=== PATIENT | male | born 1935 | race Caucasian/White ===

== ENCOUNTER 2018-07-07 06:13 | Day surgery (SDC) | payer MEDICARE, OTHER, SELFPAY ==
--- NOTE | 2018-07-06 09:30 | W.PIPPEYE ---
History of Present Illness Chief Complaint: Progressive decreased vision, right eye Narrative: The patient is an 82-year-old male with history of progressive decreased vision in both eyes at both distance and near. He notes particular difficulty on the computer. On examination he was noted to have moderate bilateral nuclear and cortical cataracts with corrected visual acuity of 20/30 OD, 20/25 OS, but with significant glare disability. The option of cataract surgery was offered to the patient and he wished to proceed. NOTE: The Chief Complaint, HPI, Past Medical History, Past Surgical History, Family History, Social History, Medications, and complete Ophthalmic Exam with detailed Assessment and Plan have already been documented in the patient's outpatient ophthalmic record and are not covered again in detail here. FORMERLY [facility], LATER [facility] Medical History Cortical cataract of right eye (Acute) Nuclear sclerotic cataract of right eye (Acute) Social History Smoking/Tobacco Use Status: Former Tobacco Use Meds Home Medications Medication Instructions Recorded Confirmed Type amiodarone 200 mg PO DAILY 07/04/18 07/04/18 History apixaban 5 mg PO BID 07/04/18 07/04/18 History furosemide 40 mg PO DAILY 07/04/18 07/04/18 History metformin 500 mg PO DAILY 07/04/18 07/04/18 History nitroglycerin [Nitrostat] 0.4 mg SUBLINGUAL Q5-15M PRN 07/04/18 07/04/18 History pantoprazole 40 mg PO DAILY 07/04/18 07/04/18 History potassium chloride [Klor-Con M20] 20 meq PO DAILY 07/04/18 07/04/18 History rosuvastatin [Crestor] 5 mg PO DAILY 07/04/18 07/04/18 History tamsulosin 0.8 mg PO DAILY 07/04/18 07/04/18 History tramadol 50 mg PO BID 07/04/18 07/04/18 History Allergies Allergy/AdvReac Type Severity Reaction Status Date / Time meperidine [From Demerol] AdvReac Verified 07/04/18 13:04 rivaroxaban [From Xarelto] AdvReac Swelling/Ed Verified 07/04/18 13:04 bessie shellfish derived AdvReac Skin Rash Verified 07/04/18 13:04 Exam OCULAR EXAM:: Most recent ocular examination revealed corrected visual acuity of 20/30 OD, 2024 OS. Intraocular pressure is 15 OD, 17 OS. Extraocular motility is normal. Pupils equal, round, and reactive without afferent pupillary defect. Slit-lamp examination reveals pupils dilating only to 4.5 mm OD, 5.5 mm OS. 2+ nuclear/cortical cataracts are present OU. Dilated funduscopic examination shows disc cupping of 0.6 OD 0.7 OS with good color. Vessels, macula, peripheral retina and vitreous are normal. There are mild macular pigmentary changes in the left eye. BRIGHTNESS ACUITY TESTING (BAT):: Brightness acuity testing of the right eye off is 20/30. Low is 20/40. Medium is 20/50. High is 20/70. Assessment and Plan (1) Nuclear sclerotic cataract of right eye: Current visit: No Status: Acute Assessment: Visually significant cataract, right eye. Plan: Cataract extraction with intraocular lens implantation, right eye (2) Cortical cataract of right eye: Current visit: No Status: Acute Assessment: Visually significant cataract, right eye. Plan: Cataract extraction with intraocular lens implantation, right eye Note: NOTE:: The details of the planned surgery, including the risks, indications,limitations,expectations,outcome and possible complications were explained to the patient. The patient understands the complications including, but not limited to: infection, hemorrhage, posterior dislocation of the lens or nuclear fragments which may require the intervention of a vitreoretinal surgeon, possible loss of the eye, or from anesthetic complications. The patient has been made aware of the option of not having surgery, that vision following surgery may not be equal to that prior to surgery, and that the planned surgery may not achieve the intended results. Following this discussion, which the patient appeared to understand, the patient wishes to proceed with cataract surgery with lens implantation of the affected eye to improve and maximize vision.
--- NOTE | 2018-07-06 11:52 | W.PM.DSUDISC ---
Discharge Plan Discharge Details Attending Provider: Simon Jara Primary Care Provider: Homar Vergara Home Meds and New Rx's Prescriptions: No Action potassium chloride [Klor-Con M20] 20 mEq Tablet,Er Particles/Crystals 20 meq PO DAILY RF: 0 pantoprazole 40 mg Tablet,Delayed Release (Dr/Ec) 40 mg PO DAILY RF: 0 nitroglycerin [Nitrostat] 0.4 mg Tablet, Sublingual 0.4 mg SUBLINGUAL Q5-15M PRNRF: 0 furosemide 20 mg Tablet 40 mg PO DAILY RF: 0 rosuvastatin [Crestor] 5 mg Tablet 5 mg PO DAILY RF: 0 metformin 500 mg Tablet 500 mg PO DAILY RF: 0 amiodarone 200 mg Tablet 200 mg PO DAILY RF: 0 tamsulosin 0.4 mg Capsule 0.8 mg PO DAILY RF: 0 apixaban 5 mg Tablet 5 mg PO BID RF: 0 tramadol 50 mg Tablet 50 mg PO BID RF: 0 Discharge Instructions Stand Alone Forms: Post-op Topical Cataract, Lulu Culp (DSU) DS: Diagnosis Discharge Diagnosis (1) Status post cataract extraction and insertion of intraocular lens of right eye: Status: Chronic
--- NOTE | 2018-07-06 11:53 | W.PM.OP ---
Date of service: 07/07/18 Time of Service: 08:09 Operative Note PRE-OP DIAGNOSIS: Cataract, right eye, with poorly dilating pupil POST-OP DIAGNOSIS: same PROCEDURE: 1. Cataract extraction by phacoemulsification with intraocular lens implantation, right eye, with pupillary expansion device SURGEON: Simon Jara ANESTHESIA: MAC (with local sub-tenon's anesthetic injection) PATHOLOGY: none sent COMPLICATIONS: None Patient was transported to: same day Patient's condition: stable Implants: Dustin and Dustin / [employer] Tecnis [id number] Indications: Progressive decreased vision due to cataract, right eye, with poorly dilating pupil Procedure Description: CATARACT SURGERY OPERATIVE REPORT PREOPERATIVE DIAGNOSIS: 1. Nuclear/cortical cataract, right eye 2. Poorly dilating pupil, right eye POSTOPERATIVE DIAGNOSIS: Same OPERATION: 1. Cataract extraction using phacoemulsification with posterior chamber intraocular lens implant, right eye. 2. Pupillary dilation and iris stabilization using Malyugin Ring IOL: IOL Keypunch Operators Supervisor/Model: Dustin & Dustin / JOSEPH Tecnis [id number] IOL Power: + 22.0 diopters IOL Serial Number: [id number] Optic Diameter: 6.0mm Haptic/Overall Diameter: 13.0mm PHACO INFO: Charles Guidefitterurion Vision System with OZil and Active Fluidics Cumulative Dispersed Energy (CDE): 9.34 seconds SURGEON: Simon Jara MD, DARSHANA ANESTHESIA: Monitored Anesthesia Care (MAC), with local sub-tenon's anesthetic infiltration COMPLICATIONS: None SPECIMENS: None INDICATIONS FOR PROCEDURE: The patient is an 82-year-old gentleman with history of symptomatic bilateral nuclear and cortical cataracts that have become increasingly more symptomatic. The option of cataract surgery was offered to the patient and he felt he was symptomatic enough that he wished to proceed. Of note, he takes Flomax and has poorly dilating pupils. PROCEDURE: The correct surgical eye was identified and marked as the right eye and the pupil was dilated in the preoperative area using mydriatics and cycloplegics. The dilated pupil size was 4.5 mm. Oral sedation was administered in the form of an Imprimis MKO Melt (midazolam 3mg/ketamine 25mg/ondansetron 2mg). The patient was brought to the operating room where cardiopulmonary monitoring was instituted and surgical time-out was performed, confirming the correct operative eye and IOL power. Topical anesthesia was administered and ophthalmic povidone-iodine 5% was instilled into the conjunctival fornices. Lidocaine gel was applied to the cornea and the allen-ocular area was prepped with Betadine 10% solution and draped in the usual sterile fashion for intraocular surgery, including an aperture drape. A Tegaderm transparent film dressing was cut in half and used to cover the lashes and lid margins. Care was taken to sequester the lashes and lid margins under the Tegaderm dressing. A lid speculum was placed between the lids of the operative eye and the Arlene-Annetta operating microscope was maneuvered into position. Gavin scissors were then used to make a conjunctival buttonhole approximately 6mm posterior to the limbus in the inferonasal quadrant. Blunt dissection was carried out to expose bare sclera, and a blunt-tipped sub-tenon?s anesthesia cannula was introduced and passed posteriorly along the globe where non-preserved plain lidocaine was injected into posterior sub-Tenon?s space. A sideport knife was used to make a paracentesis port inferiortemporally. The anterior chamber was filled with Healon GV. A 2.4mm keratome knife was used to create a half-thickness groove at the limbus and then to construct a three-plane near-clear corneal tunnel extending 2.0mm into clear cornea superiortemporally. A 7.0 mm Malyugin Ring was then inserted into the pupillary space and engaged with the Kuglen hook. A flap was raised on the anterior capsule and capsulorhexis forceps were used to complete a continuous curvilinear capsulorhexis of 4.8 mm. Balanced salt solution was then used to perform cortical cleaving hydrodissection and nuclear hydrodelineation until the lens could be freely rotated within the capsular bag. The lens nucleus was then disassembled and removed within the capsular bag and iris plane using phacoemulsification. Residual cortical material was removed using the 45-degree angled silicone I/A tip with 0.3mm port. The posterior capsule was carefully polished to remove as much residual lens epithelial cells as safely possible. The capsular bag was then inflated and the anterior chamber deepened with viscoelastic. The lens implant described above was inserted into the capsular bag using the JOSEPH Skytop Injector. A Kuglen hook was used to dial the IOL into position. The Malyugin Ring was removed in the reverse order of its insertion. Residual viscoelastic was then removed first from posterior to the IOL, then from the anterior chamber using the I/A handpiece. The lens implant was noted to center nicely within the capsular bag. The incisions were stromally hydrated, and the anterior chamber was reformed using BSS. Then 0.4cc of moxifloxacin 1.5mg/ml were injected into the capsular bag and anterior chamber. The incisions were checked with a Weck spear and found to be secure. Several drops of ophthalmic povidone-iodine 5% were then applied to the eye followed by two drops of Imprimis combination moxifloxacin/dexamethasone solution. The drapes were removed and a clear plastic protective eye shield was placed over the eye. The patient was then returned to Same Day Surgery in stable condition.
[2018-07-07 06:36] VITALS: BP 135/79; PULSE 88; RESP 17; TEMP 36.9; O2SAT 97
[2018-07-07] MEDS: Tetracaine 0.5% 4 ML BTL OD ×4 (06:45→07:32)
[2018-07-07] MEDS: Tropicam./Phenyleph. (1/2.5%) 5 ML BTL OD ×3 (06:45→06:52)
[2018-07-07] MEDS: Povidone-Iodine Ophth 30 ML BTL (07:32)
[2018-07-07] MEDS: Lidocaine 2% Jelly 6 ML SYR (07:35)
[2018-07-07] MEDS: Balanced Salt Soln.-PLUS 500 ML BAG (07:36)
[2018-07-07] MEDS: Lidocaine 1% Pres-Free 5 ML VIAL (07:38)
[2018-07-07 08:40] VITALS: BP 129/76; PULSE 88; RESP 18; TEMP 36.1; O2SAT 93
== END 2018-07-07 08:40 | disposition home or self-care (01) ==
PROVIDERS: PCP Family Medicine; Visit Provider Ophthalmology
PROC: (CPT 66982; principal; 2018-07-07 07:30)
DX: H25.811 Combined forms of age-related cataract, right eye (principal); H57.09 Other anomalies of pupillary function; T44.6X5S Adverse effect of alpha-adrenoreceptor antagonists, sequela; E11.9 Type 2 diabetes mellitus without complications; Z79.84 Long term (current) use of oral hypoglycemic drugs; I10 Essential (primary) hypertension
CPT/HCPCS: 66982; V2632

== ENCOUNTER 2018-07-21 06:59 | Day surgery (SDC) | payer MEDICARE, OTHER, SELFPAY ==
--- NOTE | 2018-07-20 07:17 | W.PIPPEYE ---
History of Present Illness Chief Complaint: Progressive decreased vision, left eye Narrative: Patient is an 82-year-old male with history of diminished visual acuity in both eyes at both distance and near. He has significant difficulty when using the computer. On examination he was noted to have moderate nuclear and cortical cataracts. He was significantly symptomatic from decreased vision that he desired cataract surgery. He underwent cataract surgery in the right eye on 07/07/2018. Postoperatively he has regained uncorrected vision of 20/20 in the right eye. He now presents for cataract surgery in the left eye. NOTE: The Chief Complaint, HPI, Past Medical History, Past Surgical History, Family History, Social History, Medications, and complete Ophthalmic Exam with detailed Assessment and Plan have already been documented in the patient's outpatient ophthalmic record and are not covered again in detail here. [facility] Medical History Cortical cataract of left eye (Acute) Nuclear sclerotic cataract of left eye (Acute) Cortical cataract of right eye (Resolved) Nuclear sclerotic cataract of right eye (Resolved) Surgical History Status post cataract extraction and insertion of intraocular lens of right eye (Chronic 07/07/18) Social History Smoking and Tabacco status: Former Tobacco Use Meds Home Medications Medication Instructions Recorded Confirmed Type amiodarone 200 mg PO DAILY 07/04/18 07/07/18 History apixaban 5 mg PO BID 07/04/18 07/07/18 History furosemide 40 mg PO DAILY 07/04/18 07/07/18 History metformin 500 mg PO DAILY 07/04/18 07/07/18 History nitroglycerin [Nitrostat] 0.4 mg SUBLINGUAL Q5-15M PRN 07/04/18 07/04/18 History pantoprazole 40 mg PO DAILY 07/04/18 07/07/18 History potassium chloride [Klor-Con M20] 20 meq PO DAILY 07/04/18 07/07/18 History rosuvastatin [Crestor] 5 mg PO DAILY 07/04/18 07/07/18 History tamsulosin 0.8 mg PO DAILY 07/04/18 07/07/18 History tramadol 50 mg PO BID 07/04/18 07/07/18 History Allergies Allergy/AdvReac Type Severity Reaction Status Date / Time meperidine [From Demerol] AdvReac Verified 07/07/18 06:30 rivaroxaban [From Xarelto] AdvReac Swelling/Ed Verified 07/07/18 06:30 bessie shellfish derived AdvReac Skin Rash Verified 07/07/18 06:30 Exam OCULAR EXAM:: Most recent ocular examination is significant for uncorrected vision of 20/20 in the right eye. Vision is corrected to 20/40 in the left eye. Intraocular pressure is 14 OD, 17 OS. Extraocular motility is normal. Pupils equal, round, and reactive without afferent pupillary defect slit-lamp examination is significant for pupils dilating to 4.5 mm OD, 5.5 mm OS. Well-positioned PCIOL OD with clear posterior capsule. 2+ nuclear with 2+ cortical cataract OS. Funduscopic examination reveals disc cupping of 0.6 OD 0.7 OS with good color. The retinal vasculature is normal. The right macula is normal. There is mild RPE changes in the left eye. Peripheral retina and vitreous is normal. BRIGHTNESS ACUITY TESTING (BAT):: Brightness acuity testing of the left eye off is 20/40. Low is 20/60. Medium is 20/60. High is 20/200. Assessment and Plan (1) Nuclear sclerotic cataract of left eye: Current visit: No Status: Acute Assessment: Visually significant cataract, left eye. Plan: Cataract extraction with intraocular lens implantation, left eye (2) Cortical cataract of left eye: Current visit: No Status: Acute Assessment: Visually significant cataract, left eye. Plan: Cataract extraction with intraocular lens implantation, left eye Note: NOTE:: The details of the planned surgery, including the risks, indications,limitations,expectations,outcome and possible complications were explained to the patient. The patient understands the complications including, but not limited to: infection, hemorrhage, posterior dislocation of the lens or nuclear fragments which may require the intervention of a vitreoretinal surgeon, possible loss of the eye, or from anesthetic complications. The patient has been made aware of the option of not having surgery, that vision following surgery may not be equal to that prior to surgery, and that the planned surgery may not achieve the intended results. Following this discussion, which the patient appeared to understand, the patient wishes to proceed with cataract surgery with lens implantation of the affected eye to improve and maximize vision.
--- NOTE | 2018-07-20 07:21 | POEE_ITS ---
History of Present Illness Chief Complaint: Progressive decreased vision, left eye Narrative: Patient is an 82-year-old male with history of diminished visual acuity in both eyes at both distance and near. He has significant difficulty when using the computer. On examination he was noted to have moderate nuclear and cortical cataracts. He was significantly symptomatic from decreased vision that he desired cataract surgery. He underwent cataract surgery in the right eye on 07/07/2018. Postoperatively he has regained uncorrected vision of 20/20 in the right eye. He now presents for cataract surgery in the left eye. NOTE: The Chief Complaint, HPI, Past Medical History, Past Surgical History, Family History, Social History, Medications, and complete Ophthalmic Exam with detailed Assessment and Plan have already been documented in the patient's outpatient ophthalmic record and are not covered again in detail here. FORMERLY [facility] Medical History Cortical cataract of left eye (Acute) Nuclear sclerotic cataract of left eye (Acute) Cortical cataract of right eye (Resolved) Nuclear sclerotic cataract of right eye (Resolved) Surgical History Status post cataract extraction and insertion of intraocular lens of right eye (Chronic 07/07/18) Social History Smoking and Tabacco status: Former Tobacco Use Meds Home Medications Medication Instructions Recorded Confirmed Type amiodarone 200 mg PO DAILY 07/04/18 07/07/18 History apixaban 5 mg PO BID 07/04/18 07/07/18 History furosemide 40 mg PO DAILY 07/04/18 07/07/18 History metformin 500 mg PO DAILY 07/04/18 07/07/18 History nitroglycerin [Nitrostat] 0.4 mg SUBLINGUAL Q5-15M PRN 07/04/18 07/04/18 History pantoprazole 40 mg PO DAILY 07/04/18 07/07/18 History potassium chloride [Klor-Con M20] 20 meq PO DAILY 07/04/18 07/07/18 History rosuvastatin [Crestor] 5 mg PO DAILY 07/04/18 07/07/18 History tamsulosin 0.8 mg PO DAILY 07/04/18 07/07/18 History tramadol 50 mg PO BID 07/04/18 07/07/18 History Allergies Allergy/AdvReac Type Severity Reaction Status Date / Time meperidine [From Demerol] AdvReac Verified 07/07/18 06:30 rivaroxaban [From Xarelto] AdvReac Swelling/Ed Verified 07/07/18 06:30 bessie shellfish derived AdvReac Skin Rash Verified 07/07/18 06:30 Exam OCULAR EXAM:: Most recent ocular examination is significant for uncorrected vision of 20/20 in the right eye. Vision is corrected to 20/40 in the left eye. Intraocular pressure is 14 OD, 17 OS. Extraocular motility is normal. Pupils equal, round, and reactive without afferent pupillary defect slit-lamp examination is significant for pupils dilating to 4.5 mm OD, 5.5 mm OS. Well- positioned PCIOL OD with clear posterior capsule. 2+ nuclear with 2+ cortical cataract OS. Funduscopic examination reveals disc cupping of 0.6 OD 0.7 OS with good color. The retinal vasculature is normal. The right macula is normal. There is mild RPE changes in the left eye. Peripheral retina and vitreous is normal. BRIGHTNESS ACUITY TESTING (BAT):: Brightness acuity testing of the left eye off is 20/40. Low is 20/60. Medium is 20/60. High is 20/200. Assessment and Plan (1) Nuclear sclerotic cataract of left eye: Current visit: No Status: Acute Assessment: Visually significant cataract, left eye. Plan: Cataract extraction with intraocular lens implantation, left eye (2) Cortical cataract of left eye: Current visit: No Status: Acute Assessment: Visually significant cataract, left eye. Plan: Cataract extraction with intraocular lens implantation, left eye Note: NOTE:: The details of the planned surgery, including the risks, evan cations,limitations,expectations,outcome and possible complications were explained to the patient. The patient understands the complications including, but not limited to: infection, hemorrhage, posterior dislocation of the lens or nuclear fragments which may require the intervention of a vitreoretinal surgeon, possible loss of the eye, or from anesthetic complications. The patient has been made aware of the option of not having surgery, that vision following surgery may not be equal to that prior to surgery, and that the planned surgery may not achieve the intended results. Following this discussion, which the patient appeared to understand, the patient wishes to proceed with cataract surgery with lens implantation of the affected eye to improve and maximize vision.
[2018-07-21 07:24] VITALS: BP 140/89; PULSE 96; RESP 18; TEMP 35.6; O2SAT 97
[2018-07-21 07:29] VITALS: BP 140/89; PULSE 96; RESP 18; TEMP 35.6; O2SAT 97
[2018-07-21] MEDS: Tropicam./Phenyleph. (1/2.5%) 5 ML BTL OS ×3 (07:42→07:51)
[2018-07-21] MEDS: Tetracaine 0.5% 4 ML BTL OS ×5 (07:42→08:27)
--- NOTE | 2018-07-21 08:05 | W.PM.DSUDISC ---
Discharge Plan Discharge Details Attending Provider: Simon Jara Primary Care Provider: Homar Vergara Home Meds and New Rx's Prescriptions: No Action potassium chloride [Klor-Con M20] 20 mEq Tablet,Er Particles/Crystals 20 meq PO DAILY RF: 0 pantoprazole 40 mg Tablet,Delayed Release (Dr/Ec) 40 mg PO DAILY RF: 0 nitroglycerin [Nitrostat] 0.4 mg Tablet, Sublingual 0.4 mg SUBLINGUAL Q5-15M PRNRF: 0 furosemide 20 mg Tablet 40 mg PO DAILY RF: 0 rosuvastatin [Crestor] 5 mg Tablet 5 mg PO DAILY RF: 0 metformin 500 mg Tablet 500 mg PO DAILY RF: 0 amiodarone 200 mg Tablet 200 mg PO DAILY RF: 0 tamsulosin 0.4 mg Capsule 0.8 mg PO DAILY RF: 0 apixaban 5 mg Tablet 5 mg PO BID RF: 0 tramadol 50 mg Tablet 50 mg PO BID RF: 0 Discharge Instructions Stand Alone Forms: Post-op Topical Cataract, Lulu Culp (DSU) DS: Diagnosis Discharge Diagnosis (1) Status post cataract extraction and insertion of intraocular lens of left eye: Status: Chronic
--- NOTE | 2018-07-21 08:05 | W.PM.OP ---
Date of service: 07/21/18 Time of Service: 08:57 Operative Note PRE-OP DIAGNOSIS: Cataract, left eye, with poorly dilating pupil POST-OP DIAGNOSIS: same PROCEDURE: Cataract extraction by phacoemulsification with intraocular lens implantation, left eye, with pupillary expansion device SURGEON: Simon Jara ANESTHESIA: MAC and local (sub-tenon's anesthetic infiltration) ESTIMATED BLOOD LOSS: 0 PATHOLOGY: none sent COMPLICATIONS: None Patient was transported to: same day Patient's condition: stable Implants: Dustin [employer] Dustin / [employer] Tecnis [id number] Indications: Progressive decreased vision, left eye Procedure Description: CATARACT SURGERY OPERATIVE REPORT PREOPERATIVE DIAGNOSIS: 1. Nuclear/cortical cataract, left eye 2. Poorly dilating pupil, left eye POSTOPERATIVE DIAGNOSIS: Same OPERATION: 1. Cataract extraction using phacoemulsification with posterior chamber intraocular lens implant, left eye. 2. Pupillary dilation and iris stabilization using Malyugin Ring IOL; IOL Date Puller/Model: Dustin & Dustin / JOSEPH Tecnis [id number] IOL Power: + 22.0 diopters IOL Serial Number: [id number] Optic Diameter: 6.0 mm Haptic/Overall Diameter: 13.00 mm PHACO INFO: [employer] Vision System with OZil and Active [employer]uidics Cumulative Dispersed Energy (CDE): 6.86 seconds SURGEON: Simon Jara MD, DARSHANA ANESTHESIA: Monitored Anesthesia Care (MAC), with local sub-tenon's anesthetic infiltration COMPLICATIONS: None SPECIMENS: None INDICATIONS FOR PROCEDURE: The patient is an 82-year-old gentleman with history of 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 He has already undergone cataract surgery in his right eye and is doing well postoperatively. He now presents for cataract surgery in the left eye. PROCEDURE: The correct surgical eye was identified and marked as the left eye and the pupil was dilated in the preoperative area using mydriatics, cycloplegics, and NSAIDS (except in aspirin allergic patients). The dilated pupil size was 4.5 mm. Oral sedation was administered in the form of an Imprimis MKO Melt (midazolam 3mg/ketamine 25mg/ondansetron 2mg). The patient was brought to the operating room where cardiopulmonary monitoring was instituted and surgical time-out was performed, confirming the correct operative eye and IOL power. Topical anesthesia was administered and ophthalmic povidone-iodine 5% was instilled into the conjunctival fornices. Lidocaine gel was applied to the cornea and the allen-ocular area was prepped with Betadine 10% solution and draped in the usual sterile fashion for intraocular surgery, including an aperture drape. A Tegaderm transparent film dressing was cut in half and used to cover the lashes and lid margins. Care was taken to sequester the lashes and lid margins under the Tegaderm dressing. A lid speculum was placed between the lids of the operative eye and the Arlene-Annetta operating microscope was maneuvered into position. Gavin scissors were then used to make a conjunctival buttonhole approximately 6mm posterior to the limbus in the inferonasal quadrant. Blunt dissection was carried out to expose bare sclera, and a blunt-tipped sub-tenon?s anesthesia cannula was introduced and passed posteriorly along the globe where non-preserved plain lidocaine was injected into posterior sub-Tenon?s space. A sideport knife was used to make a paracentesis port superiorly/superiortemporally. The anterior chamber was filled with Heal[place] GV. A 2.4mm keratome knife was used to create a half-thickness groove at the limbus and then to construct a three-plane near-clear corneal tunnel extending 2.0mm into clear cornea at the temporal position. A 7.0 mm Malyugin Ring was then inserted into the pupillary space and engaged with the Kuglen hook. A flap was raised on the anterior capsule and capsulorhexis forceps were used to complete a continuous curvilinear capsulorhexis of 5.0 mm. Balanced salt solution was then used to perform cortical cleaving hydrodissection and nuclear hydrodelineation until the lens could be freely rotated within the capsular bag. The lens nucleus was then disassembled and removed within the capsular bag and iris plane using phacoemulsification. Residual cortical material was removed using the 45-degree angled silicone I/A tip with 0.3mm port. The posterior capsule was carefully polished to remove as much residual lens epithelial cells as safely possible. The capsular bag was then inflated and the anterior chamber deepened with viscoelastic. The lens implant described above was inserted into the capsular bag using the JOSEPH [place] Injector. A Kuglen hook was used to dial the IOL into position. The Malyugin Ring was removed in the reverse order of its insertion. Residual viscoelastic was then removed first from posterior to the IOL, then from the anterior chamber using the I/A handpiece. The lens implant was noted to center nicely within the capsular bag. The incisions were stromally hydrated, and the anterior chamber was reformed using BSS. Then 0.4cc of moxifloxacin 1.5mg/ml were injected into the capsular bag and anterior chamber. The incisions were checked with a Weck spear and found to be secure. Several drops of ophthalmic povidone-iodine 5% were then applied to the eye followed by two drops of Imprimis combination moxifloxacin/dexamethasone solution. The drapes were removed and a clear plastic protective eye shield was placed over the eye. The patient was then returned to [facility] in stable condition.
[2018-07-21] MEDS: Povidone-Iodine Ophth 30 ML BTL (08:13)
[2018-07-21] MEDS: Lidocaine 2% Jelly 6 ML SYR (08:27)
[2018-07-21] MEDS: Lidocaine 1% Pres-Free 5 ML VIAL (08:28)
[2018-07-21] MEDS: Balanced Salt Soln.-PLUS 500 ML BAG (08:29)
[2018-07-21 09:20] VITALS: BP 110/68; PULSE 93; RESP 16; TEMP 36.6; O2SAT 95
== END 2018-07-21 09:30 | disposition home or self-care (01) ==
LOC: SUR 07:00
PROVIDERS: PCP Family Medicine; Visit Provider Ophthalmology
PROC: (CPT 66982; principal; 2018-07-21 08:30)
DX: H25.12 Age-related nuclear cataract, left eye (principal); H25.012 Cortical age-related cataract, left eye; H57.09 Other anomalies of pupillary function; Z98.41 Cataract extraction status, right eye; Z96.1 Presence of intraocular lens
CPT/HCPCS: 66982; V2632